=== PATIENT | male | born 1980 | race Caucasian/White ===

== ENCOUNTER 2016-10-31 12:50 | Emergency (ER) | payer SELFPAY ==
[~2016-10-31] VITALS: Ht 190.5 cm; Wt 118.0 kg
[~2016-10-31 12:50] MED LIST: ACYC800T57 PO; AMLO-147 PO; COLC0.6T6 PO; HYDR-3498 PO; HYDR-906 PO; IND50 PO; NAPR-260 PO; PRED20TA PO
[2016-10-31 12:51] VITALS: Ht 190.5 cm; Wt 118.0 kg
[2016-10-31] MEDS ORDERED: COLCHICINE 0.6 MG TAB PO ONE (14:30)
[2016-10-31] MEDS ORDERED: HYDROCODONE/APAP (5/325) TAB PO ONE (14:30)
[2016-10-31] MEDS ORDERED: COLC0.6T6 PO ×2 (14:38→14:43)
[2016-10-31] MEDS ORDERED: HYDR-906 PO (14:38)
[2016-10-31] MEDS ORDERED: IBUP800T25 PO (14:38)
--- NOTE | 2016-10-31 15:25 | ERD ---
ER Documentation Chief Complaint Date/Time DATE: 10/31/16 TIME: 15:22 Chief Complaint rt foot pain since saturday h/o gout HPI 36-year-old male with history of gout complains of right ankle and foot pain since 3 days ago. Patient states that there is swelling, achiness, and feels like his normal pain when he has gout attacks. He has not had any fevers or chills, denies trauma or injury. ROS All systems reviewed and are negative except as per history of present illness. Medications Home Meds Active Scripts Colchicine* (Colcrys*) 0.6 Mg Tablet, 0.6 MG PO DIRECTED, #1 TAB Prov:ZITA VERDUZCO PA-C 10/31/16 Hydrocodone/Acetaminophen (Drifting 5-325 Tablet) 1 Each Tablet, 1 TAB PO Q6H Y for PAIN, #7 TAB Prov:ZITA VERDUZCO PA-C 10/31/16 Ibuprofen* (Motrin*) 800 Mg Tab, 800 MG PO Q6, #30 TAB Prov:ZITA VERDUZCO PA-C 10/31/16 Naproxen* (Naprosyn*) 500 Mg Tablet, 500 MG PO BID Y for PAIN AND/OR INFLAMMATION, #30 TAB Prov:MAURO ARROYO PA-C 04/17/16 Hydrocodone/Acetaminophen (Drifting 5-325 Tablet) 1 Each Tablet, 1 TAB PO Q6H Y for PAIN, #7 TAB Prov:MAURO ARROYO PA-C 04/17/16 Acyclovir* (Zovirax*) 800 Mg Tablet, 800 MG PO QID for 7 Days, TAB Prov:MAURO ARROYO PA-C 04/17/16 Prednisone* (Prednisone*) 20 Mg Tab, 60 MG PO DAILY for 4 Days, TAB Prov:MAURO ARROYO PA-C 04/17/16 Hydrocodone Bit-Acetaminophen* (Drifting*) 5-325 Mg Tab, 1 TAB PO Q4H Y for PAIN, # 15 TAB Prov:MAURO ARROYO PA-C 12/21/15 Colchicine* (Colcrys*) 0.6 Mg Tablet, 0.6 MG PO Take 2 tabs , #3 TAB Prov:MAURO ARROYO PA-C 12/21/15 Indomethacin* (Indocin*) 50 Mg Cap, 50 MG PO BID, #30 CAP Prov:MAURO ARROYO PA-C 12/21/15 Hydrocodone Bit-Acetaminophen* (Drifting*) 5-325 Mg Tab, 1 TAB PO Q6 Y for PAIN, # 7 TAB Prov:BRII STORY PA-C 06/25/15 Indomethacin* (Indocin*) 50 Mg Cap, 50 MG PO TID for 3 Days, CAP Prov:BRII STORY PA-C 06/25/15 Hydrocodone Bit-Acetaminophen* (Drifting*) 5-325 Mg Tab, 1 TAB PO Q6 Y for PAIN LEVEL 8-10, #7 TAB Prov:CHICA HARO DO 05/17/15 Colchicine* (Colcrys*) 0.6 Mg Tablet, 0.6 MG PO as directed, #3 TAB take 2 tabs now, and 1 tab in 1 hour. Prov:CHICA HARO DO 05/17/15 Reported Medications Amlodipine Besylate* (Amlodipine Besylate*) 10 Mg Tablet, 10 MG PO DAILY 06/24/15 Allergies Allergies: Coded Allergies: No Known Allergy (Unverified , 10/31/16) PMhx/Soc Medical and Surgical Hx: pt denies Surgical Hx History of Surgery: No Anesthesia Reaction: No Hx Neurological Disorder: No Hx Respiratory Disorders: No Hx Cardiac Disorders: No Hx Psychiatric Problems: No Hx Miscellaneous Medical Probl: Yes (GOUT, HTN) Hx Alcohol Use: No Hx Substance Use: No Hx Tobacco Use: Yes Smoking Status: Current every day smoker Physical Exam Vitals Vital Signs Date Time Temp Pulse Resp B/P Pulse Ox O2 Delivery O2 Flow Rate FiO2 10/31/16 12:51 98.3 112 18 181/90 98 Physical Exam General: Well-developed, well-nourished. The patient appears in no acute distress. HEENT: Head is normocephalic, atraumatic. No scleral icterus. Neck: Supple. Nontender. Lungs: Clear to auscultation. Normal air movement. Heart: Regular rate and rhythm. S1 and S2 are normal. No murmurs, gallops, or rubs. Abdomen: Nondistended. Extremities: Diffuse swelling to the right ankle, there is no warmth or erythema. Negative Homans sign. No bony deformities Neurologic: Alert and oriented 3. No focal deficits. Normal speech and gait. Skin: Normal turgor. No rash or lesions. Results 24 hrs Current Medications Medications (Trade) Dose Ordered Sig/Kael Route PRN Reason Start Time Stop Time Status Last Admin Dose Admin Colchicine (Colchicine) 1.2 mg ONCE ONCE PO 10/31/16 14:30 10/31/16 14:31 DC 10/31/16 14:42 Acetaminophen/ Hydrocodone Bitart (Drifting (5/325)) 1 tab ONCE ONCE PO 10/31/16 14:30 10/31/16 14:31 DC 10/31/16 14:30 Procedures/MDM 36-year-old male comes in with right ankle pain and swelling that started 3 days ago, consistent with his history of gout. Patient does not show any signs of fracture, dislocation, neurovascular compromise, DVT or infectious origin. He was given his first dose of colchicine as well as Drifting in emergency department. He was given his repeat dose of colchicine as well as a short course of Drifting and ibuprofen for home. Departure Diagnosis: Primary Impression: Gout Condition: Good Patient Instructions: Treating Gout Attacks Additional Instructions: Call your primary care doctor TOMORROW for an appointment during the next 1-2 days.See the doctor sooner or return here if your condition worsens before your appointment time. ZITA VERDUZCO PA-C October 31, 2016 15:25
== END 2016-10-31 15:13 | disposition home or self-care (01) ==
LOC: FTE 12:50
DX: M10.9 Gout, unspecified (principal); I10 Essential (primary) hypertension; F17.210 Nicotine dependence, cigarettes, uncomplicated
CPT/HCPCS: 99284